=== PATIENT | male | born 1990 | race Caucasian/White ===

== ENCOUNTER 2017-09-11 12:40 | Emergency (ER) | payer SELFPAY ==
[~2017-09-11] VITALS: Ht 165.1 cm; Wt 97.8 kg
[~2017-09-11 12:40] MED LIST: LORTAB 5/3255 MG PO; MEDDOSEPAK PO; NAPROSYN500 MG PO; TOBRADEX 2.5 ML OU
[2017-09-11] MEDS ORDERED: ADVIL200 MG PO (12:53)
[2017-09-11] MEDS ORDERED: TORADOL PO (14:14)
[2017-09-11 14:18] VITALS: BP 136/85
== END 2017-09-11 14:18 | disposition home or self-care (01) | DRG 605 ==
LOC: ED 12:40
DX: S80.01XA Contusion of right knee, initial encounter (principal); M25.561 Pain in right knee; W01.198A Fall on same level from slipping, tripping and stumbling with subsequent striking against other object, initial encounter; Y93.89 Activity, other specified; Y92.009 Unspecified place in unspecified non-institutional (private) residence as the place of occurrence of the external cause

== ENCOUNTER 2018-04-12 07:59 | Emergency (ER) | payer OTHER ==
[~2018-04-12] VITALS: Ht 165.1 cm; Wt 100.0 kg
[~2018-04-12 07:59] MED LIST changes: +ADVIL200 MG PO; +TORADOL PO
[2018-04-12] MEDS ORDERED: FLEXERIL PO (08:32)
[2018-04-12] MEDS ORDERED: NAPROSYN500 MG PO (08:32)
[2018-04-12 08:34] VITALS: BP 150/88
== END 2018-04-12 08:33 | disposition home or self-care (01) | DRG 563 ==
LOC: ED 07:59
DX: S43.401A Unspecified sprain of right shoulder joint, initial encounter (principal); F17.290 Nicotine dependence, other tobacco product, uncomplicated; W20.8XXA Other cause of strike by thrown, projected or falling object, initial encounter; Y93.89 Activity, other specified; Y92.59 Other trade areas as the place of occurrence of the external cause; Y99.0 Civilian activity done for income or pay

== ENCOUNTER 2019-04-25 13:46 | Emergency (ER) | payer OTHER ==
[~2019-04-25] VITALS: Ht 165.1 cm; Wt 103.0 kg
[~2019-04-25 13:46] MED LIST changes: +FLEXERIL PO
[2019-04-25 15:19] VITALS: BP 138/89
== END 2019-04-25 15:19 | disposition home or self-care (01) | DRG 605 ==
LOC: ED 13:46
DX: S50.11XA Contusion of right forearm, initial encounter (principal); W20.8XXA Other cause of strike by thrown, projected or falling object, initial encounter; Y93.89 Activity, other specified

== ENCOUNTER 2019-10-14 | Emergency (ER) | payer OTHER ==
[2019-10-14 12:08] LABS: HEMATOCRIT 43.8 % (39.0-50.0); HEMOGLOBIN 14.9 g/dl (14.0-18.0); IMMATURE GRANULOCYTES 0.6 % (0.0-5.0); MEAN CELL VOLUME 85.2 fL CALC (80.0-100.0); NEUT# 4.62 thou/uL (1.82-7.42); RED BLOOD COUNT 5.14 mill/uL (4.70-6.10); RED CELL DISTRI WIDTH 13.2 % (11.5-15.5)
[2019-10-14 12:31] LABS: ALBUMIN 4.8 g/dL (3.2-5.0); ALKALINE PHOSPHATASE 66 u/l (38-126); ANION GAP 14 (6-22 (CALC)); BILIRUBIN, TOTAL 0.4 mg/dL (0.0-1.4); BUN 19 mg/dL (9-20); BUN/CREATININE RATIO 25 (12-20 (CALC)); CARBON DIOXIDE 24 mmol/l (22-30); CHLORIDE 107 mmol/l (95-108); CREATININE 0.7 mg/dL (0.7-1.3); GFR > 60 ML/MIN (>=60 (CALC)); GFR FOR AFR.AMER. > 60 ML/MIN (>=60 (CALC)); LIPASE 45 u/l (23-300); POTASSIUM 4.7 mmol/l (3.5-5.1); SGOT/AST 24 u/l (17-59); SODIUM 140 mmol/l (137-146); TOTAL PROTEIN 8.2 g/dL (6.3-8.2)
[2019-10-14] MEDS ORDERED: MECLIZINE25 MG PO (13:08)
== END 2019-10-14 13:13 | disposition home or self-care (01) | DRG 149 ==
PROVIDERS: Family Medicine
DX: R42 Dizziness and giddiness (principal); F17.290 Nicotine dependence, other tobacco product, uncomplicated

== ENCOUNTER 2021-02-15 06:13 | Emergency (ER) | payer SELFPAY ==
[~2021-02-15] VITALS: Ht 165.1 cm; Wt 100.0 kg
[~2021-02-15 06:13] MED LIST changes: +MECLIZINE25 MG PO
[2021-02-15] MEDS ORDERED: AMOXICILLIN500 MG PO (06:32)
[2021-02-15] MEDS ORDERED: MOTRIN800 MG PO (06:32)
[2021-02-15 06:46] VITALS: BP 140/90
== END 2021-02-15 06:47 | disposition home or self-care (01) | DRG 159 ==
LOC: ED 06:13
DX: K02.9 Dental caries, unspecified (principal); K04.7 Periapical abscess without sinus

== ENCOUNTER 2021-03-25 13:17 | Emergency (ER) | payer OTHER ==
[~2021-03-25] VITALS: Ht 165.1 cm; Wt 86.4 kg
[~2021-03-25 13:17] MED LIST changes: +AMOXICILLIN500 MG PO; +MOTRIN800 MG PO
[2021-03-25] MEDS ORDERED: CEPHALEXIN500 M1 PO (14:59)
[2021-03-25 15:05] VITALS: BP 145/81
== END 2021-03-25 15:18 | disposition home or self-care (01) | DRG 605 ==
LOC: ED 13:17
DX: S51.832A Puncture wound without foreign body of left forearm, initial encounter (principal); F17.200 Nicotine dependence, unspecified, uncomplicated; W38.XXXA Explosion and rupture of other specified pressurized devices, initial encounter; Y93.89 Activity, other specified; Y92.89 Other specified places as the place of occurrence of the external cause; Y99.0 Civilian activity done for income or pay